=== PATIENT | male | born 1990 | race Hispanic/Latino ===

== ENCOUNTER 2023-09-03 16:24 | Emergency (ER) | payer BC, MEDICAID ==
[~2023-09-03] VITALS: Ht 180.3 cm; Wt 74.4 kg
[2023-09-03 16:30] VITALS: BP 117/72; PULSE 74; RESP 18; O2SAT 98
[2023-09-03 17:22] LABS: SARS-CoV-2, RNA, NAAT NEGATIVE SARS CoV-2 (NEGATIVE)
[2023-09-03 18:37] LABS: INFLUENZA TYPE A NEGATIVE FOR TYPE A (NEG); INFLUENZA TYPE B NEGATIVE FOR TYPE B (NEG)
[2023-09-03] MEDS ORDERED: AMOX500T2 PO (18:42)
[2023-09-03] MEDS ORDERED: ACET-2123 PO (18:42)
== END 2023-09-03 19:26 | disposition home or self-care (01) ==
LOC: EDH 16:24
DX: J02.0 Streptococcal pharyngitis (principal); Z20.822 Contact with and (suspected) exposure to COVID-19; Z79.899 Other long term (current) drug therapy
CPT/HCPCS: 87635; 87804; 87880